=== PATIENT | female | born 1995 | race American Indian/Alaskan Native ===

== ENCOUNTER 2017-03-31 18:00 | Emergency (ER) | payer OTHER, MEDICAID ==
[2017-03-31] MEDS ORDERED: BSS ONE (21:15)
[2017-03-31] MEDS ORDERED: FUL-GLO OP ONE (21:15)
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
[2017-03-31 22:16] LABS: Bilirubin,Urine NEG (Negative); Blood,Urine NEG (Negative); Ketones,Urine NEG (Negative); Leukocyte Esterase,Urine NEG (Negative); Nitrite,Urine NEG (Negative); Protein,Urine <15 mg/dL mg/dL (Negative)
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
[2017-04-01 00:31] VITALS: BP 109/66
== END 2017-04-01 00:28 | disposition home or self-care (01) ==
LOC: ED 18:00
DX: O9A.211 Injury, poisoning and certain other consequences of external causes complicating pregnancy, first trimester (principal); M54.5 Low back pain; Z3A.10 10 weeks gestation of pregnancy; V49.9XXA Car occupant (driver) (passenger) injured in unspecified traffic accident, initial encounter; Y93.89 Activity, other specified; Y92.89 Other specified places as the place of occurrence of the external cause; Y99.8 Other external cause status
CPT/HCPCS: 76801; 76817; 81001; 81025; 99284